=== PATIENT | female | born 1965 | race Caucasian/White ===

== ENCOUNTER 2018-04-26 15:24 | Emergency (ER) | payer OTHER ==
[~2018-04-26] VITALS: Ht 160 cm; Wt 70.0 kg
[~2018-04-26 15:24] MED LIST: ADDERALL XR15 MG PO; AUGMENTIN500TAB PO; CIPRO XR500 M1 PO; CIPROFLOXACN500 MG PO; ESTRACE VAG0.1 MG/GM VA; MEDDOSEPAK PO; PROMETHAZINE25 M1 RE; PYRIDIUM200 MG PO; ZOCOR20 MG PO
[2018-04-26] MEDS ORDERED: ATENOLOL25 MG PO (17:24)
[2018-04-26 17:50] VITALS: BP 131/63
== END 2018-04-26 17:50 | disposition home or self-care (01) | DRG 605 ==
LOC: ED 15:24
DX: S60.131A Contusion of right middle finger with damage to nail, initial encounter (principal); I10 Essential (primary) hypertension; W23.0XXA Caught, crushed, jammed, or pinched between moving objects, initial encounter; Y92.009 Unspecified place in unspecified non-institutional (private) residence as the place of occurrence of the external cause